=== PATIENT | female | born 1970 | race Caucasian/White ===

== ENCOUNTER 2023-05-16 09:40 | Outpatient (OUT) | payer OTHER, SELFPAY ==
--- NOTE | 2023-05-16 09:51 | ECG_ITS ---
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
--- NOTE | 2023-05-16 10:22 | PM.PRESUREVA ---
History of Present Illness History of Present Illness Chief complaint: left cubital tunnel syndrome Narrative: Patient presents for preadmission testing. Please see HPI from Dr. Mariano dated 05/07/2023. Review of Systems ROS Narrative REVIEW OF SYSTEMS: Negative except as stated in HPI, ten or more systems reviewed. Constitutional: No fever , chills, weakness ENT: No sore throat or epistaxis Cardiovascular: No edema, chest pain, or palpitations Respiratory: No shortness of breath, cough, or wheezing Musculoskeletal: No joint pain or swelling Gastrointestinal: No abdominal pain, constipation, diarrhea, or vomiting Genitourinary: No dysuria or hematuria Neurological: No numbness, tingling, weakness, or headache Psychiatric: No mood changes PFSH PFSH Medical History (Updated 05/16/23 @ 10:09 by Orin Roland NP) Anemia ?D64.9 - Anemia, unspecified (ICD-10) Panic attacks ?F41.0 - Panic disorder [episodic paroxysmal anxiety] (ICD-10) Depression ?F32.A - Depression, unspecified (ICD-10) Anxiety ?F41.9 - Anxiety disorder, unspecified (ICD-10) Vertigo ?R42 - Dizziness and giddiness (ICD-10) Migraine ?G43.909 - Migraine, unspecified, not intractable, without status migrainosus (ICD-10) GERD (gastroesophageal reflux disease) ?K21.9 - Gastro-esophageal reflux disease without esophagitis (ICD-10) Hypothyroidism ?E03.9 - Hypothyroidism, unspecified (ICD-10) Menopause ?Z78.0 - Asymptomatic menopausal state (ICD-10) Cubital tunnel syndrome ?G56.20 - Lesion of ulnar nerve, unspecified upper limb (ICD-10) Surgical History (Updated 05/16/23 @ 10:09 by Orin Roland NP) History of carpal tunnel release ?Z98.890 - Other specified postprocedural states (ICD-10) History of surgery on lower extremity ?Z98.890 - Other specified postprocedural states (ICD-10) Family History (Updated 05/16/23 @ 10:09 by Orin Roland NP) Other Family history of colon cancer Family history of diabetes mellitus Family history of gastric cancer Family history of hypertension Family history of lung cancer Family history of myocardial infarction Social History (Updated 05/16/23 @ 10:04 by Orin Roland NP) Within the past year, how often did you have a drink containing alcohol: monthly or less Smoking status: Never smoker Non-prescribed substance use: denies use 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 Highest level of school completed/degree received: high school graduate Meds Home Medications and Allergies Home Medications Medication Instructions Recorded Confirmed Type levothyroxine 112 mcg tablet 112 mcg PO DAILY 05/16/23 05/16/23 History naproxen sodium 220 mg capsule 220 mg PO BID PRN pain 05/16/23 05/16/23 History (Aleve) turmeric 400 mg capsule mg PO 05/16/23 History zinc 50 mg tablet 50 mg PO DAILY 05/16/23 05/16/23 History Allergies Allergy/AdvReac Type Severity Reaction Status Date / Time nickel Allergy Rash Verified 05/16/23 10:02 Exam Narrative Exam Narrative: Constitutional: Awake, alert, comfortable, well-appearing, nontoxic, interactive, vital signs as charted Head: Normocephalic, atraumatic Neck: Supple, normal appearance, normal range of motion, no meningeal signs, no lymphadenopathy Respiratory: No respiratory distress, breath sounds clear Cardiovascular: Regular rate and rhythm, strong and regular heart tones Psychiatric: Oriented ?3, normal affect Assessment and Plan Assessment and Plan (1) Cubital tunnel syndrome: Plan Left ulnar nerve subcutaneous transposition scheduled with Dr. Mariano 05/28/2023.
[2023-05-16 10:53] LABS: Basophils Absolute Auto 0.1 10^3/uL (0.0-0.1); Basophils Percent Auto 1.1 % (0.2-2.0); Eosinophils Absolute Auto 0.3 10^3/uL (0.0-0.7); Eosinophils Percent Auto 4.4 % (0.9-7.0); Hematocrit 41.6 % (36.0-48.0); Hemoglobin 13.3 g/dL (12.0-16.0); Immature Granulocytes Abs Auto 0.07 10^3/uL (0.00-0.03); Immature Granulocytes Pct Auto 0.9 % (0.0-0.5); Lymphocytes Percent Auto 26.4 % (20.5-60.0); Mean Corpuscular Hemoglobin 29.6 pg (26.7-34.0); Mean Corpuscular Volume 92.7 fL (81.0-99.0); Mean Platelet Volume 10.4 fL (9.5-13.5); Monocytes Absolute Auto 0.8 10^3/uL (0.3-0.8); Neutrophils Absolute Auto 4.2 10^3/uL (1.4-6.5); Neutrophils Percent Auto 56.2 % (43.0-75.0); Platelet Count 314 10^3/uL (150-450); Red Blood Count 4.49 10^6/uL (4.20-5.40); Red Cell Distribution Width 14.1 % (11.0-15.0); White Blood Count 7.5 10^3/uL (4.0-11.0)
[2023-05-16 11:09] LABS: Anion Gap 15.3; BUN Creatinine Ratio 24.7; Calcium 9.2 mg/dL (8.5-10.1); Carbon Dioxide 25.4 mmol/L (21.0-32.0); Chloride 107 mmol/L (98-107); Estimated GFR (African America >60 (>=60); Estimated GFR (Non-African Ame >60 (>=60); Glucose 96 mg/dL (74-106); Potassium 3.7 mmol/L (3.5-5.1); Sodium 144 mmol/L (136-145)
== END 2023-05-16 09:41 | disposition home or self-care (01) ==
LOC: PST 09:43
PROVIDERS: PCP Nurse Practitioner Family; Visit Provider Orthopaedic Surgery
DX: Z01.810 Encounter for preprocedural cardiovascular examination (principal); Z01.812 Encounter for preprocedural laboratory examination; Z01.818 Encounter for other preprocedural examination; G56.22 Lesion of ulnar nerve, left upper limb
CPT/HCPCS: 80048; 85025; 93005; G0463

== ENCOUNTER 2023-05-28 11:52 | Day surgery (SDC) | payer OTHER, SELFPAY ==
[2023-05-16 10:18] VITALS: BP 152/88; PULSE 65; RESP 22; TEMP 36.2; O2SAT 96; BMI 52.4
[2023-05-28] VITALS (12 sets, daily range): BP systolic 114–162; BP diastolic 58–83; PULSE 59–86; RESP 14–18; TEMP 36–36.3; O2SAT 89–98; BMI 52.2
[2023-05-28] MEDS: LACTATED RINGER'S SOLUTION 1,000 ML 50 ML IV (12:22)
[2023-05-28] MEDS: CEFAZOLIN SODIUM/DEXTROSE,ISO 2 GM/50 ML PIGGYBACK IV (13:13)
[2023-05-28] MEDS: LIDOCAINE HCL 1%-EPINEPHRINE 1:100,000 10 ML MDV INJ (13:50)
[2023-05-28] MEDS: BUPIVACAINE HCL 0.5% PF 50 MG/10 ML VIAL INJ (13:50)
--- NOTE | 2023-05-28 14:38 | PM.ORPRC ---
Procedure Note Date of procedure: 05/28/23 Pre-op diagnosis: Left cubital tunnel syndrome Post-op diagnosis: same as pre-op Procedure: Procedure(s): LEFT ULNAR NERVE SUBCUTANEOUS TRANSPOSITION AT ELBOW Surgeon(s): Mello Mariano MD Anesthesia: General Estimated Blood Loss (mL): Minimal Complications: None Specimens: * No specimens in log * Implants: * No implants in log * Findings: Complete release of ulnar nerve at the elbow Detailed Description of Procedure: After informed consent was obtained the patient was brought to the operating room where a general anesthetic was administered. A well-padded proximal arm tourniquet was placed. The left arm was prepped and draped in usual sterile fashion. The arm was elevated, exsanguinated, and the tourniquet was inflated to 200 mmHg. A 7 cm curvilinear incision was made posterior to the medial epicondyle. Blunt dissection was carried down through soft tissue and the medial antebrachial cutaneous nerve was identified and protected throughout the procedure. The ulnar nerve was identified and it was released from the ligament of [place], Lan's ligament as well as the superficial and deep flexor carpi ulnaris fascia. Intermuscular septum was then removed. Subcutaneous tissue was released off of the anterior aspect of the medial epicondyle to allow for the transposed ulnar nerve. The tourniquet was deflated and hemostasis was achieved with bipolar cautery. Wound was irrigated. The nerve was then maintained in its anteriorly transposed position suturing subcutaneous tissue to medial epicondyle. Flexion and extension of the elbow revealed no tension or kinking of the nerve. Wound was closed with observable suture in layers. Wound was infiltrated with 10 mL half percent Marcaine plain mixed with 10 mL 1% lidocaine with epinephrine. Steri-Strips and sterile dressing were placed. Patient was awakened and brought to the recovery room in stable condition. There were no intraoperative or immediate postoperative complications. Anesthesia: GETA Surgeon: Mello Mariano Estimated blood loss (mL): 5 Pathology: none sent Condition: stable Disposition: PACU
== END 2023-05-28 15:55 | disposition home or self-care (01) ==
PROVIDERS: PCP Nurse Practitioner Family; Visit Provider Orthopaedic Surgery
PROC: (CPT 1710; principal; 2023-05-28 13:00)
DX: G56.22 Lesion of ulnar nerve, left upper limb (principal); F41.0 Panic disorder [episodic paroxysmal anxiety]; F32.A Depression, unspecified; F41.9 Anxiety disorder, unspecified; K21.9 Gastro-esophageal reflux disease without esophagitis; E03.9 Hypothyroidism, unspecified; E66.01 Morbid (severe) obesity due to excess calories; Z68.43 Body mass index [BMI] 50.0-59.9, adult
CPT/HCPCS: 64718; 36415; J1094; J1170; J2704

== ENCOUNTER 2023-07-20 09:59 | Emergency (ER) | payer OTHER, SELFPAY ==
[2023-07-20 10:02] VITALS: BP 146/92; PULSE 96; TEMP 37; O2SAT 98; BMI 52.7
--- NOTE | 2023-07-20 10:05 | XR_ITS ---
The [address] [address] Patient Name: MISBAH MEJIA MRN: [id number] date: 1970 Sex: F Assigned Patient Location: ER Current Patient Location: ED.MAIN Accession/Order Number: [id number] Exam Date: 07/20/2023 10:15 Report Date: 07/20/2023 11:02 At the request of: SHREYA FRANCO Procedure: XR foot LT min 3V PROCEDURE: XR foot LT min 3V HISTORY: Atraumatic pain COMPARISON: None. FINDINGS: BONES:No fracture, dislocation, bone lesion. Prominent calcaneal plantar spur. Small degenerative osteophytes along the articular margins of tibial plafond. SOFT TISSUES:Heterotopic bone formation along posterior superior margin of calcaneus likely from prior soft tissue injury. Mild distal dorsal soft tissue swelling. EFFUSION:None visible. OTHER: Negative. XR/XR foot LT min 3V IMPRESSION: 1. No acute bone abnormality. 2. Mild degenerative changes. 3. Distal dorsal soft tissue swelling of uncertain etiology. Electronically authenticated by: NORY DOYLE Date: 07/20/2023 11:02
--- NOTE | 2023-07-20 10:17 | ED_ITS ---
HPI HPI - Extremity Injury (Lower) General Chief Complaint: Extremity Injury, Lower Stated Complaint: lower extremity pain Time Seen by Provider: 07/20/23 10:02 Source: patient Mode of arrival: walk-in Limitations: no limitations History of Present Illness HPI Narrative: 52-year-old female presents for pain on the dorsum of her left foot. It started within the last day and was not associated with any sort of trauma. She noted some redness. Her ankle and calf do not hurt. It hurts more to push on it or walk. Related Data Home Medications ?Medication ?Instructions ?Recorded ?Confirmed levothyroxine 112 mcg tablet 112 mcg PO DAILY 05/16/23 07/20/23 naproxen sodium 220 mg capsule 220 mg PO BID PRN pain 05/16/23 07/20/23 (Aleve) turmeric 400 mg capsule 400 mg PO DAILY 05/16/23 07/20/23 zinc 50 mg tablet 50 mg PO DAILY 05/16/23 07/20/23 Previous Rx's ?Medication ?Instructions ?Recorded cephalexin 500 mg capsule 500 mg PO QID 10 days #40 caps 07/20/23 ibuprofen 800 mg tablet 800 mg PO Q8H PRN pain #20 tabs 07/20/23 Allergies Allergy/AdvReac Type Severity Reaction Status Date / Time nickel Allergy Rash Verified 05/16/23 10:02 Opioid HPI Opioid Management Most Recent Pain and Opioid Data: Last Pain Scale 4 07/20/23 10:09 Review of Systems ROS Narrative A ten point review of systems is negative except as noted above. PFSH [facility] Medical History (Updated 07/20/23 @ 11:20 by Alvin Morocho MD) Anemia ?D64.9 - Anemia, unspecified (ICD-10) Panic attacks ?F41.0 - Panic disorder [episodic paroxysmal anxiety] (ICD-10) Depression ?F32.A - Depression, unspecified (ICD-10) Anxiety ?F41.9 - Anxiety disorder, unspecified (ICD-10) Vertigo ?R42 - Dizziness and giddiness (ICD-10) Migraine ?G43.909 - Migraine, unspecified, not intractable, without status migrainosus (ICD-10) GERD (gastroesophageal reflux disease) ?K21.9 - Gastro-esophageal reflux disease without esophagitis (ICD-10) Hypothyroidism ?E03.9 - Hypothyroidism, unspecified (ICD-10) Menopause ?Z78.0 - Asymptomatic menopausal state (ICD-10) Cubital tunnel syndrome ?G56.20 - Lesion of ulnar nerve, unspecified upper limb (ICD-10) Surgical History (Updated 05/16/23 @ 10:09 by Orin Roland NP) History of carpal tunnel release ?Z98.890 - Other specified postprocedural states (ICD-10) History of surgery on lower extremity ?Z98.890 - Other specified postprocedural states (ICD-10) Family History (Updated 05/16/23 @ 10:09 by Orin Roland NP) Other Family history of colon cancer Family history of diabetes mellitus Family history of gastric cancer Family history of hypertension Family history of lung cancer Family history of myocardial infarction Social History (Updated 05/16/23 @ 10:04 by Orin Roland NP) Within the past year, how often did you have a drink containing alcohol: monthly or less Smoking status: Never smoker Non-prescribed substance use: denies use 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 General: The patient appears well and in no apparent distress. Patient is resting comfortably on cart. Skin: Warm, dry, no pallor noted. There is no rash noted. Head: Normocephalic, atraumatic Eye: Normal conjunctiva, no drainage Ears, Nose, Mouth, and Throat: oral mucosa is moist. Nares patent. Cardiovascular: Regular Rate and Rhythm Respiratory: Patient is in no distress, no accessory muscle use, lungs are clear to auscultation, no wheezing, rales or rhonchi Back: non-tender GI: Soft and nontender Musculoskeletal: The distal dorsum of her left foot has some erythema and tenderness and minimal swelling. There is no open area. The ankle does not have any tenderness or swelling. Neurological: A&O, normal speech Psychiatric: Cooperative Constitutional Vital Signs, click to edit/add: Last Vital Signs Temp 98.6 F 07/20/23 10:02 Pulse 96 H 07/20/23 10:02 Resp 20 07/20/23 10:02 BP 146/92 H 07/20/23 10:02 Pulse Ox 98 07/20/23 10:02 O2 Del Method Room Air 07/20/23 10:02 Course Vital Signs Vital signs: Vital Signs Temperature 98.6 F 07/20/23 10:02 Pulse Rate 96 H 07/20/23 10:02 Respiratory Rate 20 07/20/23 10:02 Blood Pressure 146/92 H 07/20/23 10:02 Pulse Oximetry 98 07/20/23 10:02 Oxygen Delivery Method Room Air 07/20/23 10:02 Temperature 98.6 F 07/20/23 10:02 Pulse Rate 96 H 07/20/23 10:02 Respiratory Rate 20 07/20/23 10:02 Blood Pressure 146/92 H 07/20/23 10:02 Pulse Oximetry 98 07/20/23 10:02 Oxygen Delivery Method Room Air 07/20/23 10:02 MDM - Extremity Injury (Lower) MDM Narrative Medical decision making narrative: X-ray shows some soft tissue swelling, otherwise negative. The possibility of cellulitis versus arthritis was discussed with the patient and she is prescribed Keflex and Motrin and referred to podiatry for follow-up. I have low suspicion for gout. Treatment diagnosis and follow-up were discussed with the patient. Differential Diagnosis Differential diagnosis: Likely other (Cellulitis, arthritis) Imaging Data Foot x-ray: Radiologist's impression: ITS Impressions Foot X-Ray 07/20/23 10:05 IMPRESSION: 1. No acute bone abnormality. 2. Mild degenerative changes. 3. Distal dorsal soft tissue swelling of uncertain etiology. Electronically authenticated by: NORY DOYLE Date: 07/20/2023 11:02 Discharge Plan Discharge Stand Alone Forms: Portal Instructions Chief Complaint: Extremity Injury, Lower Clinical Impression: Acute pain of left foot Patient Disposition: Home, Self-Care Time of Disposition Decision: 11:20 Condition: Good Mode of Transportation: Private Vehicle Prescriptions / Home Meds: New ibuprofen 800 mg tablet 800 mg PO Q8H PRN (Reason: pain) Qty: 20 0RF cephalexin 500 mg capsule 500 mg PO QID 10 Days Qty: 40 0RF No Action levothyroxine 112 mcg tablet 112 mcg PO DAILY naproxen sodium [Aleve] 220 mg capsule 220 mg PO BID PRN (Reason: pain) zinc 50 mg tablet 50 mg PO DAILY turmeric 400 mg capsule 400 mg PO DAILY Print Language: Welsh Instructions: Cellulitis (ED), Arthralgia (ED) Referrals: BA BAZAN [Primary Care Provider] - 1 week Tyree Zurita DPM [Physician] - 1 week
--- OUTSIDE RECORDS SUMMARY | 2023-07-20 10:58 | XMS_ITS | CCD ---
Author Organization [facility] Care Team Providers Care Floor Installation Mechanic Name Role Phone LAURENCE KELLEY Unavailable Unavailable LAURENCE KELLEY Unavailable Unavailable HOUSE, MARCIO Unavailable Unavailable HOUSE, MARCIO Unavailable Unavailable HOUSE, DR BUCKLEY Admitting Unavailable HOUSE, DR BUCKLEY Attending Unavailable HOUSE, DR BUCKLEY Primary Care Unavailable HOUSE, DR BUCKLEY Consulting Unavailable Problems Active Problems Problem Classification Problem Date Documented Da te Episodic/Chronic Osteoarthritis (1 source) Polyosteoarthrit is, unspecified; Translations: [POLYOSTEOARTHRI TIS, UNSPECIFIED] Onset: 10-02-2016 Chronic Thyroid disorders (4 sources) Hypothyroidism, unspecified; Translations: [HYPOTHYROIDISM UNSPECIFIED] Onset: 05-11-2022 Chronic Unclassified (2 sources) Unknown / UNK(Unknown) Onset: 10-02-2016 Past or Other Problems Problem Classification Problem Date Documented Da te Episodic/Chronic Fracture of lower limb (4 sources) Other fracture of shaft of right tibia, initial encounter for closed fracture; Translations: [OTH FRACTURE OF SHAFT OF RIGHT TIBIA, INIT FOR CLOS FX] Onset: 10-02-2016 Episodic Results Test Name Value Interpretation Reference Range Facil ity T4on 05-11-2022 T4 [Mass/Vol] 7.90 ug/dL Normal 4.80-13.90 [facility] Comment on above: Performed By: #### T SH, T4 #### [facility] [address] [address] [address] Isis Austin TSHon 05-11-2022 TSH 13.602 uIU/mL Critically high 0.358-3.740 [facility] Comment on above: Performed By: #### T SH, T4 #### [facility] [address] [address] [address] Isis Austin Encounters Encounter Date Encounter Type Care Provider Facility Start: 05-11-2022 End: 05-12-[address] MARCIO PAUL Facility: Start: 10-02-2016 End: 10-03-2016 Ambulatory LAURENCE KELLEY Facility:[facility] Payers Date Payer Category Payer Unknown [id number] 1959 Unknown [id number] Worker's Compensation [id number] Summary Purpose Family History No Family History Records FoundNo Family History Records Found Advance Directives No Advanced Directives Records FoundNo Advanced Directives Records Found Additional Source Comments INFORMATION SOURCE (unrecogn ized section and content) DATE CREATED AUTHOR 10/05/2017 [facility] DATE CREATED AUTHOR AUTHOR'S ORGANIZ ATION 05/15/2022 [facility] [place] [facility] adam FOR RECORDS PERTAINING TO PATIENTS WHO ARE OR HAVE BEEN ENROLLED IN A CHEMICAL DEPENDENCY/SUBSTANCEABUSE PROGRAM, SOME INFORMATION MAY BE OMITTED. This clinical summary was aggregated from multiple sources. Caution should be exercised in using it in the provision of clinical care. This summary normalizes information from multiple sources, and as a consequence, information in this document may materially change the coding, format and clinical context of patient data. In addition, data may be omitted in some cases. CLINICAL DECISIONS SHOULD BE BASED ON THE PRIMARY CLINICAL RECORDS. [employer] provides no warranty or guarantee of the accuracy or completeness of information in this document.
== END 2023-07-20 11:47 | disposition home or self-care (01) ==
PROVIDERS: Emergency Provider Emergency Medicine; PCP Nurse Practitioner Family
DX: M79.672 Pain in left foot (principal); F32.A Depression, unspecified; F41.9 Anxiety disorder, unspecified; K21.9 Gastro-esophageal reflux disease without esophagitis; E03.9 Hypothyroidism, unspecified; Z78.0 Asymptomatic menopausal state; Z79.890 Hormone replacement therapy; Z79.899 Other long term (current) drug therapy; Z98.890 Other specified postprocedural states
CPT/HCPCS: 73630; 99283

== ENCOUNTER 2023-10-25 07:26 | Outpatient (OUT) | payer OTHER, SELFPAY ==
--- OUTSIDE RECORDS SUMMARY | 2023-10-25 07:30 | XMS_ITS | CCD ---
Author Organization [facility] Care Team Providers Care Screen Tacker Name Role Phone LAURENCE KELLEY Unavailable Unavailable [...] 05-11-2022 T4 [Mass/Vol] 7.90 ug/dL Normal 4.80-13.90 [facility] Comment on above: Performed By: #### T SH, T4 #### [facility] [address] [address] [address] Isis Austin TSHon 05-11-2022 TSH 13.602 uIU/mL Critically high 0.358-3.[address] [facility] Comment on above: Performed By: #### T SH, T4 #### [facility] [address] [address] [address] Isis Austin Encounters Encounter Date Encounter Type Care Provider Facility Start: 05-11-2022 End: 05-12-[address] MARCIO PAUL Facility: Start: 10-02-2016 End: 10-03-2016 Ambulatory LAURENCE KELLEY Facility:[facility] Payers Date Payer Category Payer Unknown [id number] 1959 Unknown [id number] Worker's Compensation [id number] Summary Purpose Family History No Family History Records FoundNo Family History Records Found Advance Directives No Advanced Directives Records FoundNo Advanced Directives Records Found Additional Source Comments INFORMATION SOURCE (unrecogn ized section and content) DATE CREATED AUTHOR 10/05/2017 [facility] DATE CREATED AUTHOR AUTHOR'S ORGANIZ ATION 05/15/2022 [facility] [place] [facility] FOR RECORDS PERTAINING TO PATIENTS WHO [...] BE BASED ON THE PRIMARY CLINICAL RECORDS. [employer] provides no warranty or guarantee of the accuracy or completeness of information in this document.
[2023-10-25 07:58] LABS: Basophils Absolute Auto 0.1 10^3/uL (0.0-0.1); Basophils Percent Auto 1.1 % (0.2-2.0); Eosinophils Absolute Auto 0.4 10^3/uL (0.0-0.7); Hematocrit 42.5 % (36.0-48.0); Hemoglobin 14.1 g/dL (12.0-16.0); Immature Granulocytes Abs Auto 0.06 10^3/uL (0.00-0.03); Immature Granulocytes Pct Auto 0.9 % (0.0-0.5); Lymphocytes Absolute Auto 1.5 10^3/uL (1.2-3.8); Lymphocytes Percent Auto 21.2 % (20.5-60.0); Mean Corpuscular HGB Conc 33.2 g/dL (29.9-35.2); Mean Corpuscular Hemoglobin 31.1 pg (26.7-34.0); Mean Corpuscular Volume 93.6 fL (81.0-99.0); Mean Platelet Volume 10.4 fL (9.5-13.5); Monocytes Absolute Auto 0.8 10^3/uL (0.3-0.8); Monocytes Percent Auto 11.1 % (1.7-12.0); Neutrophils Absolute Auto 4.3 10^3/uL (1.4-6.5); Neutrophils Percent Auto 60.7 % (43.0-75.0); Platelet Count 297 10^3/uL (150-450); Red Blood Count 4.54 10^6/uL (4.20-5.40); Red Cell Distribution Width 13.7 % (11.0-15.0)
[2023-10-25 08:45] LABS: Estimated Average Glucose 131 mg/dL; Glycohemoglobin A1C 6.2 % (4.5-6.2)
[2023-10-25 10:24] LABS: Alanine Aminotransferase 124 U/L (14-59); Albumin Globulin Ratio 1.1; Albumin Level 3.9 g/dL (3.4-5.0); Alkaline Phosphatase 160 U/L (46-116); Anion Gap 14.2; Aspartate Amino Transferase 74 U/L (15-37); BUN Creatinine Ratio 22.5; Bilirubin Total 0.9 mg/dL (0.2-1.0); Calcium 9.3 mg/dL (8.5-10.1); Carbon Dioxide 26.9 mmol/L (21.0-32.0); Chloride 105 mmol/L (98-107); Chol HDL Ratio 6.5; Cholesterol 278 mg/dL (<=200); Estimated GFR (African America >60 (>=60); Estimated GFR (Non-African Ame 51 (>=60); Free T3 2.38 pg/mL (2.18-3.98); Globulin 3.6 g/dL; Glucose 133 mg/dL (74-106); HDL Cholesterol 43 mg/dL (40-60); Potassium 4.1 mmol/L (3.5-5.1); Sodium 142 mmol/L (136-145); Total Protein 7.5 g/dL (6.4-8.2); Triglycerides 267 mg/dL (<=150); VLDL CHOLESTEROL 53.4 mg/dL
[2023-10-25 10:47] LABS: Free T4 0.82 ng/dL (0.76-1.46)
== END 2023-10-25 07:27 | disposition home or self-care (01) ==
LOC: LAB 07:27
PROVIDERS: PCP Nurse Practitioner Family; Visit Provider Nurse Practitioner Family
DX: Z00.00 Encounter for general adult medical examination without abnormal findings (principal); E03.9 Hypothyroidism, unspecified
CPT/HCPCS: 36415; 80053; 80061; 83036; 84439; 84443; 84481; 85025

== ENCOUNTER 2024-02-12 07:50 | Outpatient (OUT) | payer OTHER, SELFPAY ==
--- OUTSIDE RECORDS SUMMARY | 2024-02-12 08:11 | XMS_ITS | CCD ---
Author Organization [facility] Care Team Providers Care Superintendent Oil Field Drilling Name Role Phone LAURENCE KELLEY Unavailable Unavailable [...] 05-11-2022 T4 [Mass/Vol] 7.90 ug/dL Normal 4.80-13.90 [facility] Comment on above: Performed By: #### T SH, T4 #### [facility] [address] [address] [address] Isis Austin TSHon 05-11-2022 TSH 13.602 uIU/mL Critically high 0.358-3.740 [facility] Comment on above: Performed By: #### T SH, T4 #### [facility] [address] [address] [address] Isis Austin Encounters Encounter Date Encounter Type Care Provider Facility Start: 05-11-2022 End: 05-12-[address] MARCIO PAUL Facility: Start: 10-02-2016 End: 10-03-2016 Ambulatory LAURENCE KELLEY Facility:[facility] Payers Date Payer Category Payer Unknown [id number] 1959 Unknown [id number] Worker's Compensation [id number] Summary Purpose Family History No Family History Records FoundNo Family History Records Found Advance Directives No Advanced Directives Records FoundNo Advanced Directives Records Found Additional Source Comments INFORMATION SOURCE (unrecogn ized section and content) DATE CREATED AUTHOR 10/05/2017 [facility] DATE CREATED AUTHOR AUTHOR'S ORGANIZ ATION [...] BE BASED ON THE PRIMARY CLINICAL RECORDS. [employer] provides no warranty or guarantee of the accuracy or completeness of information in this document.
[2024-02-12 09:42] LABS: Anion Gap 14.8; Carbon Dioxide 24.3 mmol/L (21.0-32.0); Chloride 105 mmol/L (98-107); Glucose 119 mg/dL (74-106); Potassium 4.1 mmol/L (3.5-5.1); Sodium 140 mmol/L (136-145)
[2024-02-12 09:43] LABS: Alanine Aminotransferase 90 U/L (14-59); Albumin Level 3.6 g/dL (3.4-5.0); Alkaline Phosphatase 156 U/L (46-116); Aspartate Amino Transferase 52 U/L (15-37); BUN Creatinine Ratio 17.3; Bilirubin Total 1.2 mg/dL (0.2-1.0); Calcium 9.5 mg/dL (8.5-10.1); Cholesterol 236 mg/dL (<=200); Estimated GFR (African America >60 (>=60 mL/min/1.73m^2); Estimated GFR (Non-African Ame 55 (>=60 mL/min/1.73m^2); Globulin 3.5 g/dL; HDL Cholesterol 46 mg/dL (40-60); Total Protein 7.1 g/dL (6.4-8.2); Triglycerides 241 mg/dL (<=150); VLDL CHOLESTEROL 48.2 mg/dL
[2024-02-12 09:44] LABS: Chol HDL Ratio 5.1; Free T3 2.13 pg/mL (2.18-3.98); Thyroid Stimulating Hormone 16.029 uIU/mL (0.358-3.740)
[2024-02-13 06:10] LABS: HBsAg Screen Negative (Negative); HCV Ab Non Reactive (Non Reactive); Hep A Ab, IgM Negative (Negative); Hep B Core Ab, IgM Negative (Negative)
== END 2024-02-12 07:51 | disposition home or self-care (01) ==
LOC: LAB 07:53
PROVIDERS: PCP Nurse Practitioner Family; Visit Provider Nurse Practitioner Family
DX: R74.8 Abnormal levels of other serum enzymes (principal); E03.9 Hypothyroidism, unspecified; Z01.89 Encounter for other specified special examinations
CPT/HCPCS: 36415; 80053; 80061; 80074; 84436; 84443; 84481